=== PATIENT | female | born 1985 | race Caucasian/White ===

== ENCOUNTER 2020-08-13 09:25 | Inpatient (IN) | payer MEDICAID ==
[~2020-08-13] VITALS: Ht 172.7 cm; Wt 103.3 kg
[2020-08-13] MEDS ORDERED: METOCLOPRAMIDE 5 MG/ML, 2ML IV ONE (10:00)
[2020-08-13] MEDS ORDERED: LACTATED RINGERS 1,000 ML IVBOLUS ONE (10:00)
[2020-08-13] MEDS ORDERED: ONDANSETRON 2MG/ML, 2ML IVPush ONE (10:00)
[2020-08-13] MEDS ORDERED: PLEASE ENTER HEIGHT AND WEIGHT MC SCH (10:00)
[2020-08-13] MEDS ORDERED: CALCIUM CARBONATE 500 MG TAB.CHEW PO PRN (10:00)
[2020-08-13 10:03] LABS: BASOPHILS % (AUTO) 1 % (0-1); EOSINOPHILS % (AUTO) 1 % (1-7); LYMPHOCYTES % (AUTO) 21 % (22-44); MD NO; MEAN CORPUSCULAR HEMOGLOBIN 27.1 pg (27.0-34.8); MEAN PLATELET VOLUME 9.5 fL (7.4-10.4); MONOCYTES % (AUTO) 6 % (2-9); NEUTROPHILS % (AUTO) 71 % (42-75); PLATELET COUNT 306 x10^3/uL (130-400); RED BLOOD COUNT 4.28 x10^6/uL (3.82-5.3); RED CELL DISTRIBUTION WIDTH 14.1 % (9.6-15.2)
[2020-08-13 10:12] LABS: INTERNATIONAL NORMALIZED RATIO 0.93 (0.93-1.1); PROTHROMBIN TIME 9.8 Seconds (9.6-11.5)
[2020-08-13] MEDS ORDERED: hydrALAzine 20 MG/ML, 1ML IVPush PRN (10:30)
[2020-08-13] MEDS ORDERED: OXYcodone 5 MG/5 ML ORAL.SOL UDC PO PRN (10:30)
[2020-08-13] MEDS ORDERED: hydrALAzine 20 MG/ML, 1ML IV PRN (10:30)
[2020-08-13] MEDS ORDERED: FENTANYL PF 100 MCG/2ML IV PRN (10:30)
[2020-08-13] MEDS ORDERED: EPHEDRINE 50 MG/ML, 1ML IVPush PRN (10:30)
[2020-08-13] MEDS ORDERED: ALBUTEROL SULFATE 2.5 MG/3 ML NPPB PRN (10:30)
[2020-08-13] MEDS ORDERED: MIDAZOLAM 1 MG/ML, 2ML IV PRN (10:30)
[2020-08-13] MEDS ORDERED: PROMETHAZINE 25 MG/ML, 1ML IV PRN (10:30)
[2020-08-13] MEDS ORDERED: MEPERIDINE/PF 25MG/0.5ML IVPush PRN (10:30)
[2020-08-13] MEDS ORDERED: HYDROcodone/APAP 7.5-325MG/15ML UDC PO PRN (10:30)
[2020-08-13] MEDS ORDERED: SODIUM CITRATE/CITRIC ACID 30 ML UDC PO ONE (10:30)
[2020-08-13] MEDS ORDERED: ONDANSETRON 2MG/ML, 2ML IVPush PRN (10:30)
[2020-08-13] MEDS ORDERED: METOPROLOL 1 MG/ML, 5ML IV PRN (10:30)
[2020-08-13] MEDS ORDERED: LABETALOL 5MG/ML, 20ML IV PRN (10:30)
[2020-08-13] MEDS ORDERED: KETOROLAC 30 MG/1 ML ONE (10:35)
[2020-08-13] MEDS ORDERED: DEXAMETHASONE 4 MG/ML, 1ML ONE (10:35)
[2020-08-13] MEDS ORDERED: CEFAZOLIN 1,000 MG ONE (10:35)
[2020-08-13] MEDS ORDERED: PHENYLEPHRINE 10 MG/ML ONE (10:35)
[2020-08-13] MEDS ORDERED: OXYTOCIN 10 UNITS/ML, 1ML ONE (10:35)
[2020-08-13] MEDS ORDERED: EPHEDRINE 50 MG/ML, 1ML ONE (10:35)
[2020-08-13] MEDS ORDERED: ONDANSETRON 2MG/ML, 2ML ONE (10:35)
[2020-08-13] MEDS ORDERED: FENTANYL PF 100 MCG/2ML ONE (10:36)
[2020-08-13] MEDS ORDERED: HYDROmorphone 2 MG/ML, 1ML ONE (10:37)
[2020-08-13] MEDS ORDERED: SODIUM CITRATE/CITRIC ACID 15 ML UDC ONE (10:55)
[2020-08-13] MEDS ORDERED: NEWBORN KIT ONE (10:55)
[2020-08-13] MEDS ORDERED: OXYTOCIN 30U/ 0.9% NaCL 500ML 500 ML ONE (10:56)
[2020-08-13] MEDS: LACTATED RINGERS 1,000 ML IV SCH ×2 (11:13→13:36)
[2020-08-13] MEDS ORDERED: HYDROmorphone 1 MG/ML, 1ML INJ IVPush PRN (11:30)
[2020-08-13] MEDS ORDERED: ACETAMINOPHEN 325 MG TABLET PO PRN (12:30)
[2020-08-13] MEDS ORDERED: SIMETHICONE 80 MG CHEW TAB PO PRN (12:30)
[2020-08-13] MEDS ORDERED: MISOPROSTOL 200 MCG TABLET PR PRN (12:30)
[2020-08-13] MEDS: OXYTOCIN 30U/ 0.9% NaCL 500ML 500 ML IV SCH ×2 (13:36→22:30)
[2020-08-13 15:30] VITALS: BP 111/74
[2020-08-13] MEDS: ACETAMINOPHEN 325 MG TABLET PO PRN (16:27)
[2020-08-13] MEDS: OXYcodone IR 5MG TABLET PO PRN ×2 (16:27→22:50)
[2020-08-13] MEDS: IBUPROFEN 600 MG TABLET PO PRN ×2 (16:27→22:49)
[2020-08-13 19:30] VITALS: BP 100/64
[2020-08-13 20:56] LABS: MEAN CORPUSCULAR HGB CONC 33.1 g/dL (32.4-35.8); MEAN PLATELET VOLUME 8.7 fL (7.4-10.4); PLATELET COUNT 284 x10^3/uL (130-400); RED BLOOD COUNT 3.72 x10^6/uL (3.82-5.3); RED CELL DISTRIBUTION WIDTH 14.2 % (9.6-15.2)
[2020-08-13 21:01] LABS: MD YES
[2020-08-13 21:28] LABS: BAND#(MANUAL) 1.16 x10^3/uL; BANDS%(MANUAL) 6 % (0-7); LYMPH#(MANUAL) 1.55 x10^3/uL (1-3.4); LYMPHS% (MANUAL) 8 % (22-44); METAMYELOCYTES# (MANUAL) 0.19 x10^3/uL (0-0); METAMYELOCYTES% (MANUAL) 1 % (0-1); MONOS#(MANUAL) 0.78 x10^3/uL (0.3-2.7); MONOS% (MANUAL) 4 % (2-9); SEG#(MANUAL) 15.71 x10^3/uL (1.8-6.8); SEGS% (MANUAL) 81 % (42-75)
[2020-08-13 21:29] LABS: <PLATELET ESTIMATE> ADEQUATE; <PLT MORPHOLOGY> NORMAL PLT MORPH; <RBC MORPHOLOGY> NORMAL
[2020-08-14 00:45] VITALS: BP 102/66
[2020-08-14] MEDS: ACETAMINOPHEN 325 MG TABLET PO PRN (01:31)
[2020-08-14 03:00] VITALS: BP_SYST 102; BP_SYST 103; BP_DIAS 66; BP_DIAS 69
[2020-08-14] MEDS: IBUPROFEN 600 MG TABLET PO PRN ×3 (04:18→18:09)
[2020-08-14] MEDS: OXYcodone IR 5MG TABLET PO PRN ×2 (04:19→10:43)
[2020-08-14 08:01] VITALS: BP 104/70
[2020-08-14] MEDS: ENOXAPARIN 30 MG/0.3 ML SQ SCH (08:05)
[2020-08-14] MEDS: DOCUSATE 100 MG CAPSULE PO PRN ×2 (08:05→22:06)
[2020-08-14] MEDS: OXYTOCIN 30U/ 0.9% NaCL 500ML 500 ML IV SCH (08:30)
[2020-08-14] MEDS: PRENATAL VIT/IRON/FA 1 EACH TABLET PO SCH (09:00)
[2020-08-14 11:32] VITALS: BP 113/77
[2020-08-14 15:27] VITALS: BP 95/60
[2020-08-14] MEDS: HYDROcodone/APAP 5/325 TABLET PO PRN ×3 (18:09→22:10)
[2020-08-14 19:25] VITALS: BP 102/70
[2020-08-15] MEDS: IBUPROFEN 600 MG TABLET PO PRN ×4 (00:15→19:33)
[2020-08-15] MEDS: HYDROcodone/APAP 5/325 TABLET PO PRN ×4 (04:07→22:35)
[2020-08-15 05:49] LABS: CREATININE 0.58 mg/dL (0.55-1.02)
[2020-08-15 07:20] VITALS: BP 102/66
[2020-08-15] MEDS: PRENATAL VIT/IRON/FA 1 EACH TABLET PO SCH (10:09)
[2020-08-15] MEDS: DOCUSATE 100 MG CAPSULE PO PRN ×2 (10:09→19:33)
[2020-08-15] MEDS: ENOXAPARIN 30 MG/0.3 ML SQ SCH (10:11)
[2020-08-15 19:45] VITALS: BP 111/71
[2020-08-16] MEDS: IBUPROFEN 600 MG TABLET PO PRN ×2 (01:52→08:36)
[2020-08-16] MEDS: HYDROcodone/APAP 5/325 TABLET PO PRN ×2 (05:29→12:56)
[2020-08-16 08:26] VITALS: BP 104/71
[2020-08-16] MEDS: ENOXAPARIN 30 MG/0.3 ML SQ SCH (08:36)
[2020-08-16] MEDS: DOCUSATE 100 MG CAPSULE PO PRN (08:36)
[2020-08-16] MEDS: PRENATAL VIT/IRON/FA 1 EACH TABLET PO SCH (08:36)
[2020-08-16] MEDS ORDERED: IBUP-1222 PO (08:53)
[2020-08-16] MEDS ORDERED: ACET325T26 PO (08:53)
[2020-08-16] MEDS ORDERED: HYDR-1067 PO (08:53)
[2020-08-16] MEDS ORDERED: ENOX30DI3 SQ (08:53)
[2020-08-17] MEDS ORDERED: ENOXAPARIN 40 MG/0.4 ML SQ SCH (09:00)
== END 2020-08-16 15:57 | disposition home or self-care (01) | DRG 788 ==
LOC: EDSTATUS 09:25 → LDIP 09:27 → 2NW 16:00
PROVIDERS: ADMIT Obstetrics & Gynecology; ATTEND Obstetrics & Gynecology
PROC: 10D00Z1 Extraction of Products of Conception, Low, Open Approach (ICD-10-PCS; principal; 2020-08-14)
DX: O34.211 Maternal care for low transverse scar from previous cesarean delivery (principal); Z86.711 Personal history of pulmonary embolism; Z3A.39 39 weeks gestation of pregnancy; Z37.0 Single live birth; Z20.822 Contact with and (suspected) exposure to COVID-19
CPT/HCPCS: 36415; 82565; 85025; 85610; 85730; 86592; 86850; 86900; 86923; 87635; G0378; J0690; J1100; J1170; J1650; J1885; J2405; J3010; J2370; J2590; J2765; J7120